=== PATIENT | male | born 1955 | race Caucasian/White ===

== ENCOUNTER → 2023-12-29 11:06 | Outpatient (REF) | payer MEDICARE, OTHER, SELFPAY | LOC: DHCBC/DCA 11:06 | PROVIDERS: ATTENDING PHYSICIAN Internal Medicine Cardiovascular Disease; FAMILY PHYSICIAN Student in an Organized Health Care Education/Training Program | DX: I10 Essential (primary) hypertension (principal); R94.31 Abnormal electrocardiogram [ECG] [EKG]; R07.9 Chest pain, unspecified; I48.11 Longstanding persistent atrial fibrillation; E78.5 Hyperlipidemia, unspecified | CPT/HCPCS: 78452; 93017; A9500; J2785 ==

== ENCOUNTER 2024-06-02 06:05 | Day surgery (SDC) | payer MEDICARE, OTHER, SELFPAY ==
[2024-06-02] VITALS (10 sets, daily range): BP systolic 92–156; BP diastolic 68–99; BMI 33.5
[2024-06-02] MEDS: TYLENOL 1000 MG PO (07:01)
[2024-06-02] MEDS: NORMOSOL-R 1000 IV (07:02)
[2024-06-02] MEDS: MOTRIN 600 MG PO (12:34)
== END 2024-06-02 12:50 | disposition home or self-care (01) ==
LOC: SDS 06:05
PROVIDERS: ATTENDING PHYSICIAN Surgery
DX: K60.5 Anorectal fistula (principal)
CPT/HCPCS: 46280; J1335

== ENCOUNTER → 2024-07-22 13:06 | Outpatient (REF) | payer MEDICARE, OTHER, SELFPAY | LOC: RCS 13:06 | PROVIDERS: ATTENDING PHYSICIAN Surgery; FAMILY PHYSICIAN Student in an Organized Health Care Education/Training Program | DX: Z01.818 Encounter for other preprocedural examination (principal) | CPT/HCPCS: 93005 ==

== ENCOUNTER 2024-08-25 06:54 | Day surgery (SDC) | payer MEDICARE, OTHER, SELFPAY ==
[2024-08-25 12:37] VITALS: BMI 33.3
[2024-08-25 12:38] VITALS: BMI 33.3
[2024-08-25 12:39] VITALS: BP 146/98
[2024-08-25] MEDS: TYLENOL 1000 MG PO (12:53)
[2024-08-25 14:22] VITALS: BP 103/63
[2024-08-25 14:30] VITALS: BP 108/83
[2024-08-25 14:46] VITALS: BP 117/104
== END 2024-08-25 15:20 | disposition home or self-care (01) ==
LOC: SDS 06:54
PROVIDERS: ATTENDING PHYSICIAN Surgery
DX: K60.52 Anorectal fistula, complex (principal)
CPT/HCPCS: 46285